=== PATIENT | male | born 1945 | race Caucasian/White ===

== ENCOUNTER 2016-05-30 15:31 | Inpatient (IN) | payer MEDICARE ==
[2016-05-30] MEDS ORDERED: DUONEB 0.5-3 MG/3 ml Neb IH PRN (16:24)
[2016-05-30] MEDS: DUONEB 0.5-3 MG/3 ml Neb IH SCH ×2 (16:26→20:26)
[2016-05-30] MEDS ORDERED: Zofran 4 MG/2 ML VIAL IV PRN (17:06)
[2016-05-30] MEDS ORDERED: Sodium Chloride 0.9% 10 ML FLUSH Syringe IV PRN (17:06)
[2016-05-30] MEDS ORDERED: Norco 10/325 MG Tablet PO PRN (17:20)
[2016-05-30] MEDS ORDERED: Nitrostat 0.4 MG Tablet SL PRN (17:20)
[2016-05-30] MEDS ORDERED: COMBIVENT RESPIMAT COMMON CANISTER IH PRN (17:20)
[2016-05-30] MEDS ORDERED: Compazine 5 MG PO PRN (17:20)
--- NOTE | 2016-05-30 17:23 | XRAY ---
Indication: CHF. Comparison: No Portable chest demonstrates COPD and CIPD. There is right base infiltrate/atelectasis and minimal left base fibrosis/scarring. No consolidation or large effusion. Heart is not enlarged. Left-sided AICD and right-sided Port-A-Cath. Bony thorax intact with mild osteopenia. Impression: Right base infiltrate/atelectasis. Correlate clinically. COPD and CIPD.
[2016-05-30] MEDS ORDERED: FLUTICASONE FUROATE 100 MCG IH SCH (17:30)
[2016-05-30 17:33] LABS: Mean Cell Volume 95.1 fl (78-100); Mean Platelet Volume 9.7 fl (6-9.5); Platelet Count 122 K/mm3 (150-450); Red Blood Count 4.06 M/mm3 (4.1-5.6); Red Cell Distribution Width 19.3 % (11.5-14.0); White Blood Count 6.7 K/mm3 (4.0-10.5)
[2016-05-30] MEDS ORDERED: MEDICATION INTERVENTION MC PRN (17:33)
[2016-05-30 18:23] LABS: ALBUMIN 3.2 g/dL (3.4-5.0); ALKALINE PHOSPHATASE 133 U/L (46-116); BILIRUBIN,TOTAL 0.6 mg/dL (0.2-1.0); BLOOD UREA NITROGEN 16 mg/dL (9-20); CHLORIDE 102 mEq/L (98-107); Carbon Dioxide 26.1 mEq/L (21-32); Glucose 91 MG/DL (70-110); Potassium 3.9 mEq/L (3.5-5.1); SGOT/AST 11 U/L (15-37); SGPT/ALT 9 U/L (12-78); SODIUM 139 mEq/L (136-145); Total Protein 7.5 gm/dL (6.4-8.2)
[2016-05-30] MEDS ORDERED: ENOXAPARIN SODIUM SQ ONE ×2 (18:41→18:46)
[2016-05-30] MEDS: ENOXAPARIN SODIUM SQ SCH (18:42)
[2016-05-30] MEDS: Lasix 40 MG/4 ML IV SCH ×2 (18:48→22:48)
[2016-05-30] MEDS: POTASSIUM CHL 40 MEQ/30 ML ORAL SOLUTION PO SCH (18:49)
[2016-05-30] MEDS: Pepcid 20 MG PO SCH (18:49)
[2016-05-30] MEDS: MS CONTIN 30 MG PO SCH (18:49)
[2016-05-30] MEDS: Duragesic 25MCG Patch TOP SCH (18:58)
[2016-05-30 19:39] LABS: Total Cells Counted 100
[2016-05-30 19:40] LABS: Platelet Estimate NORMAL (NORMAL)
[2016-05-30] MEDS: LACTULOSE 20 GM/30ML UD CUP PO SCH (22:49)
[2016-05-30] MEDS: MS CONTIN 60 MG PO SCH (22:49)
[2016-05-30] MEDS: COREG 12.5 MG PO SCH (22:49)
[2016-05-31] MEDS: Lasix 40 MG/4 ML IV SCH ×2 (05:53→14:09)
[2016-05-31] MEDS: DUONEB 0.5-3 MG/3 ml Neb IH SCH ×4 (05:56→17:59)
[2016-05-31] MEDS: MS CONTIN 30 MG PO SCH ×3 (07:44→16:42)
[2016-05-31] MEDS: ZOLOFT 50 MG TABLET PO SCH (08:40)
[2016-05-31] MEDS: POTASSIUM CHL 40 MEQ/30 ML ORAL SOLUTION PO SCH (08:40)
[2016-05-31] MEDS: LACTULOSE 20 GM/30ML UD CUP PO SCH ×2 (08:42→23:59)
[2016-05-31] MEDS: Pepcid 20 MG PO SCH (08:44)
[2016-05-31] MEDS: NORVASC 5 MG PO SCH (08:44)
[2016-05-31] MEDS: Protonix 40MG Tablet PO SCH (08:44)
[2016-05-31] MEDS: COREG 12.5 MG PO SCH (08:44)
[2016-05-31] MEDS: Sodium Chloride 0.9% 10 ML FLUSH Syringe IV SCH ×3 (08:47→14:09)
--- NOTE | 2016-05-31 09:14 | PCM.NOTE ---
Date and Time: 05/31/16908 Subjective Assessment: States last night his breathing "broke loose" and he feels much better, asking to go home. He's on 2L NC at home, but is on 5 L here. Objective Exam General Appearance: no apparent distress, thin Neurologic Exam: alert, cooperative Skin Exam: normal color, warm, dry Respiratory Exam: diminished breath sounds, wheezing (faint scattered) Cardiovascular Exam: regular rate/rhythm, normal heart sounds Gastrointestinal/Abdomen Exam: soft, normal bowel sounds, No tenderness Extremity Exam: swelling (1+ LE edema bilat) OBJECTIVE DATA Vital Signs: Vital Signs - 24 hr Temp Pulse Resp BP BP Pulse Ox 05/31/16 07:11 98 F 61 20 119/56 94 L 05/31/16 05:56 63 23 82 L 05/31/16 03:00 98.5 F 62 17 146/65 118/60 89 L 05/30/16 23:00 97.9 F 67 18 146/65 103/55 91 L 05/30/16 20:26 62 23 94 L 05/30/16 19:52 97.5 F 67 19 146/65 107/56 92 L 05/30/16 16:45 97.5 F 54 L 20 146/65 87 L 05/30/16 16:24 53 L 24 87 L 05/30/16 15:52 97.5 F 54 L 20 146/65 97 Oxygen-Last 24 hours O2 Percentage 4 Liters = 36% O2 Percentage 6 Liters = 44% O2 Percentage 6 Liters = 44% O2 Percentage 6 Liters = 44% O2 Percentage 4 Liters = 36% Pain Assessment - Last Documented Pain Intensity 0 Pain Scale Used 0-10 Pain Scale Intake and Output: Intake & Output 05/28/16 05/29/16 05/30/16 05/31/16 11:59 11:59 11:59 11:59 Intake Total 2220 Output Total 2475 Balance -255 Weight 60.146 kg Lab Results: Lab Results-Last 24 Hours 05/30/16 05/30/16 05/30/16 Range/Units 17:05 17:05 17:05 WBC 6.7 (4.0-10.5) K/mm3 RBC 4.06 L (4.1-5.6) M/mm3 Hgb 12.6 (12.5-18.0) gm/dl Hct 38.6 L (42-50) % MCV 95.1 (78-100) fl MCH 31.0 (26-32) pg MCHC 32.6 (32-36) g/dl RDW 19.3 H (11.5-14.0) % Plt Count 122 L (150-450) K/mm3 MPV 9.7 H (6-9.5) fl Segmented Neutrophils 85 H (36.-66.) % Lymphocytes (Manual) 8 L (24-44) % Monocytes (Manual) 7 (0.0-12.0) % Differential Comment NORMAL Platelet Estimate NORMAL (NORMAL) D-Dimer 0.936 H* (0.00-0.49) mg/L Sodium 139 (136-145) mEq/L Potassium 3.9 (3.5-5.1) mEq/L Chloride 102 (98-107) mEq/L Carbon Dioxide 26.1 (21-32) mEq/L Anion Gap 15.0 (5-15) MEQ/L BUN 16 (9-20) mg/dL Creatinine 0.88 (0.55-1.30) mg/dl Estimated GFR > 60 ML/MIN Glucose 91 (70-110) MG/DL Calcium 8.7 (8.5-10.1) mg/dL Total Bilirubin 0.6 (0.2-1.0) mg/dL AST 11 L (15-37) U/L ALT 9 L (12-78) U/L Alkaline Phosphatase 133 H (46-116) U/L NT-Pro-B Natriuret Pep 1666 H (0-125) pg/ml Serum Total Protein 7.5 (6.4-8.2) gm/dL Albumin 3.2 L (3.4-5.0) g/dL Radiology Exams: Radiology Procedures Category Date Time Status CHEST 1 VIEW (PORTABLE) Routine Exams 05/30/16 16:07 Completed Multi-Disciplinary Progress Notes: Multi-Disciplinary Progress Notes 05/30/16 17:14 Case Management Note by Salina Chong DISCHARGE PLAN REVIEWED WITH PT ET HIS . THEY AT THIS TIME ARE THINKING THAT THEY MAY NEED A WALKER ON DISCHARGE. Initialized on 05/30/16 17:14 - END OF NOTE Assessment/Plan (1) CHF exacerbation Current Visit: Yes Status: Acute Assessment & Plan: He is feeling better, however I advised one more day of IV meds and weaning off the O2 would be beneficial and he agrees to stay. Continue IV lasix. Code(s): I50.9 - HEART FAILURE, UNSPECIFIED (2) SOB (shortness of breath) Current Visit: Yes Status: Acute Assessment & Plan: Much improved. Pt with elevated D-dimer; however he does have esophageal cancer apparently and clinically SOB is much better. Will hold on CT chest for now. Code(s): R06.02 - SHORTNESS OF BREATH
[2016-05-31] MEDS: Flonase NASAL NS SCH (09:31)
[2016-05-31] MEDS ORDERED: NON-FORMULARY ITEM (Febuxostat [Uloric] 40 MG) PO SCH (10:00)
[2016-05-31] MEDS ORDERED: NON-FORMULARY ITEM (Omeprazole 20 Mg [Prilosec 20 Mg] 20 MG) PO SCH (10:00)
[2016-05-31] MEDS ORDERED: Flonase NASAL NS SCH (10:00)
[2016-05-31] MEDS: TYLENOL 325 MG PO PRN (15:39)
[2016-05-31] MEDS: ENOXAPARIN SODIUM SQ SCH (18:44)
[2016-06-01] MEDS: Sodium Chloride 0.9% 10 ML FLUSH Syringe IV SCH ×4 (00:08→22:05)
[2016-06-01 04:15] LABS: COMPLETE URINE MICROSCOPIC? YES; Collection Type CLEAN CATCH; Epithelial Cells RARE /HPF (FEW); Ph 7.5 (5-6)
[2016-06-01] MEDS: TYLENOL 325 MG PO PRN (05:00)
[2016-06-01] MEDS: Nicoderm CQ 21 MG TOP SCH (05:59)
[2016-06-01] MEDS: Lasix 40 MG/4 ML IV SCH ×4 (05:59→22:05)
[2016-06-01] MEDS: MS CONTIN 30 MG PO SCH ×3 (07:11→17:21)
[2016-06-01] MEDS: DUONEB 0.5-3 MG/3 ml Neb IH SCH ×4 (07:20→17:46)
[2016-06-01] MEDS: NORVASC 5 MG PO SCH (08:32)
[2016-06-01] MEDS: COREG 12.5 MG PO SCH ×3 (08:32→22:05)
[2016-06-01] MEDS: LACTULOSE 20 GM/30ML UD CUP PO SCH ×2 (08:35→22:04)
[2016-06-01] MEDS: POTASSIUM CHL 40 MEQ/30 ML ORAL SOLUTION PO SCH (08:36)
[2016-06-01] MEDS: Pepcid 20 MG PO SCH (08:36)
[2016-06-01] MEDS: ZOLOFT 50 MG TABLET PO SCH (08:36)
[2016-06-01] MEDS: Protonix 40MG Tablet PO SCH (08:37)
--- NOTE | 2016-06-01 09:35 | PCM.NOTE ---
Date and Time: 06/01/16 09 Subjective Assessment: patient had fever this morning, he has some sputum production with his cough now. his swelling had dramatically improved. overall he is feeling better. Objective Exam General Appearance: no apparent distress, alert Respiratory Exam: crackles/rales Cardiovascular Exam: regular rate/rhythm, normal heart sounds Gastrointestinal/Abdomen Exam: soft, No tenderness, No mass Extremity Exam: normal inspection, normal range of motion OBJECTIVE DATA Vital Signs: Vital Signs - 24 hr Temp Pulse Resp BP BP Pulse Ox 06/01/16 07:28 80 16 89 L 06/01/16 07:19 97.9 F 89 20 96/54 90 L 06/01/16 05:00 101 F 06/01/16 03:00 101 F 88 21 86/48 90 L 05/31/16 23:00 99.6 F 95 H 24 125/76 89 L 05/31/16 19:00 99.7 F 88 26 H 139/63 93 L 05/31/16 18:00 88 18 95 05/31/16 15:18 55 L 16 90 L 05/31/16 14:53 97.6 F 78 18 146/65 116/57 90 L 05/31/16 11:19 82 12 86 L 05/31/16 11:17 97.8 F 80 20 122/64 90 L Oxygen-Last 24 hours O2 Percentage 60% O2 Percentage 5 Liters = 40% O2 Percentage 5 Liters = 40% O2 Percentage 3 Liters = 32% Pain Assessment - Last Documented Pain Intensity 0 Pain Scale Used 0-10 Pain Scale Intake and Output: Intake & Output 05/29/16 05/30/16 05/31/16 06/01/16 11:59 11:59 11:59 11:59 Intake Total 2220 800 Output Total 9185 1525 Balance -655 -725 Weight 60.146 kg 59.466 kg Lab Results: Lab Results-Last 24 Hours 06/01/16 Range/Units 03:00 Ur Collection Type CLEAN CATCH Urine Color YELLOW (YELLOW) Urine Appearance CLEAR (CLEAR) Urine pH 7.5 (5-6) Ur Specific [place] 1.015 (1.005-1.025) Urine Protein NEGATIVE (Negative) Urine Glucose (UA) NEGATIVE (NEGATIVE) mg/dL Urine Ketones NEGATIVE (NEGATIVE) Urine Nitrite NEGATIVE (NEGATIVE) Urine Bilirubin NEGATIVE (NEGATIVE) Urine Urobilinogen 1 (0-1) mg/dL Urine WBC (Auto) NEGATIVE (NEGATIVE) Urine RBC (Auto) TRACE NON-HEM (0-5) Yo/ul Urine Microscopic RBC 0-2 (0-2) /HPF Ur Epithelial Cells RARE (FEW) /HPF Specimen Received 06/01/16:0300 Radiology Exams: Radiology Procedures Category Date Time Status CHEST 1 VIEW (PORTABLE) Routine Exams 05/30/16 16:07 Completed CHEST 1 VIEW (PORTABLE) Routine Exams 06/02/16 07:00 Ordered Multi-Disciplinary Progress Notes: Multi-Disciplinary Progress Notes 06/01/16 05:09 Respiratory Note by Carlos Alberto Waddell CALLED TO PT RM AGAIN REGARDING LOW SATS. NURSING STATES HIS SATS ARE 88. I INCREASED PT O2 FROM 10LPM TO 15LPM VIA OXYMASK AND PT SATS CAME UP TO 92%. PT IS SLEEPING AT THE MOMENT. Initialized on 06/01/16 05:09 - END OF NOTE 06/01/16 02:08 Respiratory Note by Carlos Alberto Waddell CALLED TO PT RM FOR SATS OF 78 ON 6LPM O2. PLACED PT ON 15LPM OXYMASK AND SATS WENT UP TO 99%. TITRATED PT DOWN TO 10LPM WHERE SATS HOVERED BETWEEN 95% AND 97 %. LEFT PT SLEEPING ON 10LPM OXYMASK. NURSING IS AWARE OF CHANGE. Initialized on 06/01/16 02:08 - END OF NOTE Assessment/Plan (1) Pneumonia Current Visit: Yes Status: Acute Assessment & Plan: patient started on levaquin due to infiltrate vs atelectasis on chest xray and now with fever this morning Code(s): J18.9 - PNEUMONIA, UNSPECIFIED ORGANISM (2) CHF exacerbation Current Visit: Yes Status: Acute Assessment & Plan: improved with diuresis Code(s): I50.9 - HEART FAILURE, UNSPECIFIED
[2016-06-01] MEDS: LEVOFLOXACIN 750MG/150ML D5W 150 ML IV SCH (13:12)
[2016-06-01] MEDS: Flonase NASAL NS SCH (13:33)
[2016-06-01] MEDS: ENOXAPARIN SODIUM SQ SCH (17:21)
[2016-06-01] MEDS: MS CONTIN 60 MG PO SCH ×2 (22:05)
[2016-06-02] MEDS: Nicoderm CQ 21 MG TOP SCH (05:24)
[2016-06-02] MEDS: Sodium Chloride 0.9% 10 ML FLUSH Syringe IV SCH (05:25)
[2016-06-02] MEDS: Lasix 40 MG/4 ML IV SCH (05:26)
[2016-06-02] MEDS ORDERED: Sodium Chloride 0.9% 500 ML 500 ML IV ONE (06:00)
[2016-06-02 06:01] LABS: Mean Cell Volume 96.7 fl (78-100); Mean Corpuscular Hemoglobin 31.1 pg (26-32); Mean Platelet Volume 10.6 fl (6-9.5); Platelet Count 118 K/mm3 (150-450); Red Blood Count 3.34 M/mm3 (4.1-5.6); Red Cell Distribution Width 18.8 % (11.5-14.0); White Blood Count 9.4 K/mm3 (4.0-10.5)
[2016-06-02 06:21] LABS: ALBUMIN 2.3 g/dL (3.4-5.0); ALKALINE PHOSPHATASE 103 U/L (46-116); ANION GAP 14.2 MEQ/L (5-15); BILIRUBIN,TOTAL 0.7 mg/dL (0.2-1.0); BLOOD UREA NITROGEN 26 mg/dL (9-20); CHLORIDE 101 mEq/L (98-107); Carbon Dioxide 27.3 mEq/L (21-32); Glucose 109 MG/DL (70-110); MAGNESIUM 1.5 mg/dL (1.8-2.4); Potassium 3.9 mEq/L (3.5-5.1); SGOT/AST 6 U/L (15-37); SODIUM 139 mEq/L (136-145); Total Protein 6.4 gm/dL (6.4-8.2)
[2016-06-02] MEDS: DUONEB 0.5-3 MG/3 ml Neb IH SCH ×2 (06:43→11:05)
[2016-06-02 06:48] LABS: SGPT/ALT < 6 U/L (12-78)
[2016-06-02 07:22] LABS: ANISOCYTOSIS 1+; Platelet Estimate NORMAL (NORMAL); Total Cells Counted 100
--- NOTE | 2016-06-02 08:23 | PCM.DS ---
Discharge Summary Date of Admission: 05/30/16 15:35 Admitting Physician: MADELEINE NICHOLSON Primary Care Provider: MADELEINE NICHOLSON Allergies Allergies adhesive tape Allergy (Verified 04/15/15 08:23) Iodinated Contrast Media - Oral and [Iodinated Contrast Media - IV Dye] Allergy (Verified 04/15/15 08:23) Penicillins Allergy (Verified 05/28/15 06:39) Hives tetanus and diphtheria toxoids [tetanus & diphtheria toxoids] Allergy (Verified 04/15/15 08:23) Hospital Summary - Hospital Course Hospital Course: patient doing much better at this time, was admitted with chf exacerbation and found to have mild infiltrate on chest xray. he has improved dramatically and had excellent diuresis - Vitals & Intake/Output Vital Signs: Vital Signs Temperature 98 F 06/02/16 07:35 Pulse Rate 61 06/02/16 07:35 Respiratory Rate 20 06/02/16 07:35 Blood Pressure 108/52 06/02/16 07:35 O2 Sat by Pulse Oximetry 98 06/02/16 07:35 Oxygen-Last Documented O2 Percentage 100% Intake & Output: Intake & Output 05/30/16 05/31/16 06/01/16 06/02/16 11:59 11:59 11:59 11:59 Intake Total 2220 800 1000 Output Total 2875 1825 2000 Balance -305 1025 -1000 Weight 60.146 kg 59.466 kg 59.602 kg - Lab Result Diagrams: 06/02/16 05:05 06/02/16 05:05 Lab Results-Last 24 Hrs: Lab Results-Last 24 Hours 06/01/16 06/02/16 06/02/16 Range/Units 03:00 05:05 05:05 WBC 9.4 (4.0-10.5) K/mm3 RBC 3.34 L (4.1-5.6) M/mm3 Hgb 10.4 L (12.5-18.0) gm/dl Hct 32.3 L (42-50) % MCV 96.7 (78-100) fl MCH 31.1 (26-32) pg MCHC 32.2 (32-36) g/dl RDW 18.8 H (11.5-14.0) % Plt Count 118 L (150-450) K/mm3 MPV 10.6 H (6-9.5) fl Segmented Neutrophils 87 H (36.-66.) % Lymphocytes (Manual) 9 L (24-44) % Monocytes (Manual) 4 (0.0-12.0) % Differential Comment ABNORMAL Platelet Estimate NORMAL (NORMAL) Anisocytosis 1+ Sodium 139 (136-145) mEq/L Potassium 3.9 (3.5-5.1) mEq/L Chloride 101 (98-107) mEq/L Carbon Dioxide 27.3 (21-32) mEq/L Anion Gap 14.2 (5-15) MEQ/L BUN 26 H (9-20) mg/dL Creatinine 1.36 H (0.55-1.30) mg/dl Estimated GFR 55 ML/MIN Glucose 109 (70-110) MG/DL Calcium 8.3 L (8.5-10.1) mg/dL Magnesium 1.5 L (1.8-2.4) mg/dL Total Bilirubin 0.7 (0.2-1.0) mg/dL AST 6 L (15-37) U/L ALT < 6 L (12-78) U/L Alkaline Phosphatase 103 (46-116) U/L Serum Total Protein 6.4 (6.4-8.2) gm/dL Albumin 2.3 L (3.4-5.0) g/dL Ur Collection Type CLEAN CATCH Urine Color YELLOW (YELLOW) Urine Appearance CLEAR (CLEAR) Urine pH 7.5 (5-6) Ur Specific [place] 1.015 (1.005-1.025) Urine Protein NEGATIVE (Negative) Urine Glucose (UA) NEGATIVE (NEGATIVE) mg/dL Urine Ketones NEGATIVE (NEGATIVE) Urine Nitrite NEGATIVE (NEGATIVE) Urine Bilirubin NEGATIVE (NEGATIVE) Urine Urobilinogen 1 (0-1) mg/dL Urine WBC (Auto) NEGATIVE (NEGATIVE) Urine RBC (Auto) TRACE NON-HEM (0-5) Yo/ul Urine Microscopic RBC 0-2 (0-2) /HPF Ur Epithelial Cells RARE (FEW) /HPF Specimen Received 06/01/16:0300 Micro Results-Entire Visit: Microbiology 05/30/16 17:15 Blood Culture - Preliminary Blood NO GROWTH TO DATE 05/30/16 17:05 Blood Culture - Preliminary Blood NO GROWTH TO DATE - Radiology Exams Ordered Rad Exams-Entire Visit: Radiology Procedures Category Date Time Status CHEST 1 VIEW (PORTABLE) Routine Exams 06/02/16 07:00 Taken - Procedures and Test Procedures and Tests throughout Hospitalization: Therapy Orders & Screens 05/30/16 16:24 Respiratory Nebulizer 07,11,15,19 Comment: Diagnosis: CHF exacurbation, esophagal cancer 05/30/16 16:25 Oxygen NASAL CANNULA 6 lpm Comment: Diagnosis: CHF exacurbation, esophagal cancer Respiratory Nebulizer Comment: Diagnosis: CHF exacurbation, esophagal cancer Discharge Exam General Appearance: no apparent distress, alert Respiratory Exam: prolonged expirations Cardiovascular Exam: regular rate/rhythm, normal heart sounds Gastrointestinal/Abdomen Exam: soft, No tenderness, No mass Extremity Exam: normal inspection, normal range of motion, pedal edema (trace) Final Diagnosis/Problem List - Final Discharge Diagnosis/Problem (1) Pneumonia Current Visit: Yes Status: Acute (2) CHF exacerbation Current Visit: Yes Status: Acute - Discharge Disposition: Home, Self-Care Condition: Stable Prescriptions: New Levofloxacin [Levaquin] 500 mg PO DAILY #7 tablet Continue Ipratropium/Albuterol Sulfate [Combivent Respimat Common Canister] 1 puff IH Q6HPRN PRN PRN Reason: breathing Carvedilol 12.5 mg [Coreg 12.5 mg] 12.5 mg PO BID Famotidine 20 mg [Pepcid 20 MG] 20 mg PO DAILY Furosemide 40 mg [Lasix 40 MG] 40 mg PO DAILY Fentanyl 25Mcg Patch [Duragesic 25MCG Patch] 25 mcg TD UD Fluocinolone/Shower Cap [Fluocinolone 0.01% Scalp Oil] 118.28 ml TP Q12H PRN PRN PRN Reason: skin Fluticasone Furoate [Arnuity Ellipta] 100 mcg IH UD Hydrocodone/APAP 10/325 mg [[place] 10/325 MG Tablet] 1 tab PO Q4H PRN PRN PRN Reason: Pain Ipratropium [place] 0.5 mg [Atrovent 0.5MG NEBULE] 0.5 mg IH UD Morphine Sulfate [Morphine Sulfate ER] 30 mg PO TID Sertraline HCl 50 mg [Zoloft 50 mg Tablet] 100 mg PO DAILY Prochlorperazine Maleate 5 mg* [Compazine 5 MG] 10 mg PO Q6HPRN PRN PRN Reason: Nausea Potassium Chl 40 Meq Oral Krissy* [Potassium Chl 40 Meq/30 ml Oral Solution] 15 meq PO DAILY Omeprazole 20 MG [Prilosec 20 mg] 20 mg PO DAILY Nitroglycerin 0.4 mg Tablet [Nitrostat 0.4 MG Tablet] 0.4 mg SL [id number] PRN PRN Reason: Chest Pain Morphine Sulfate [Morphine Sulfate ER] 60 mg PO QHS Febuxostat [Uloric] 40 mg PO DAILY Discontinued Amlodipine Besylate 5 mg [Norvasc 5 mg] 5 mg PO DAILY Follow up with: MADELEINE NICHOLSON MD [Primary Care Provider] - 1 Week Forms: Patient Portal Information
[2016-06-02] MEDS: LEVOFLOXACIN 750MG/150ML D5W 150 ML IV SCH (08:27)
[2016-06-02] MEDS: POTASSIUM CHL 40 MEQ/30 ML ORAL SOLUTION PO SCH (08:27)
[2016-06-02] MEDS: LACTULOSE 20 GM/30ML UD CUP PO SCH (08:30)
[2016-06-02] MEDS: Protonix 40MG Tablet PO SCH (08:31)
[2016-06-02] MEDS: Pepcid 20 MG PO SCH (08:31)
[2016-06-02] MEDS: ZOLOFT 50 MG TABLET PO SCH (08:31)
[2016-06-02] MEDS: MS CONTIN 30 MG PO SCH ×2 (08:31→12:49)
[2016-06-02] MEDS: Duragesic 25MCG Patch TOP SCH (08:32)
[2016-06-02] MEDS: Flonase NASAL NS SCH (08:32)
[2016-06-02] MEDS: NORVASC 5 MG PO SCH (08:41)
[2016-06-02] MEDS: COREG 12.5 MG PO SCH (08:41)
--- NOTE | 2016-06-02 08:55 | XRAY ---
Indication: Hypoxia and CHF. Comparison: May 30, 2016 Portable chest demonstrates new subtle left base infiltrate/atelectasis. Remaining chest unchanged again with right base infiltrate/atelectasis, COPD/CIPD, pacemaker, and Port-A-Cath. Heart is not enlarged.
[2016-06-02 11:10] VITALS: PULSE 75
[2016-06-02 11:46] VITALS: BP 90/50; O2SAT 95
== END 2016-06-02 14:18 | disposition home or self-care (01) | DRG 193 ==
LOC: OBSVTOIN 15:35 → MED SURG 15:35
PROVIDERS: ADMIT Family Medicine; ATTEND Family Medicine
DX: J18.9 Pneumonia, unspecified organism (principal); I50.23 Acute on chronic systolic (congestive) heart failure; C15.9 Malignant neoplasm of esophagus, unspecified; I42.9 Cardiomyopathy, unspecified; J44.9 Chronic obstructive pulmonary disease, unspecified; K21.9 Gastro-esophageal reflux disease without esophagitis; I73.9 Peripheral vascular disease, unspecified; F32.9 Major depressive disorder, single episode, unspecified; Z79.899 Other long term (current) drug therapy
CPT/HCPCS: 36415; 71010; 80053; 81000; 83735; 83880; 85025; 85379; 87040; 94640; 94760; J1642; J1650; J1940; J1956

== ENCOUNTER 2016-10-24 14:21 | Emergency (ER) | payer MEDICARE ==
[2016-10-24] MEDS ORDERED: Sodium Chloride 0.9% 1000 ML 1,000 ML IV SCH (14:30)
[2016-10-24] MEDS ORDERED: DUONEB 0.5-3 MG/3 ml Neb IH ONE ×4 (14:34→16:25)
[2016-10-24 14:35] LABS: A-aADO2 51; ARTERIAL BLD GAS O2 SATURATION 88.3 % (95-100); ARTERIAL BLOOD GAS BASE EXCESS 2.8 (-2.0-2.0); ARTERIAL BLOOD GAS FIO2 21 %; ARTERIAL BLOOD GAS pH 7.44 (7.35-7.45); Lactic Acid 1.9 (0.4-2.0)
[2016-10-24 14:36] LABS: ALLEN TEST OK? YES; ARTERIAL BLOOD GAS PO2 49 mmHg (75-100)
--- NOTE | 2016-10-24 14:44 | ERPHSYRPT ---
- History of Present Illness Time Seen by Provider: 10/24/16 14:30 Source: patient, family, EMS Exam Limitations: clinical condition Physician History: PATIENT WITH HISTORY OF ESOPHAGEAL CARCINOMA, HYPERTERSION, COPD, CONGESTIVE HEART FAILURE, FAMILY STATES PATIENT HAS BEEN LETHARGIC, LABORED BREATHING, COMPLAINS OF GENERALIZED CHEST AND BACK PAIN. STATES PATIENT HAS NONPRODUCTIVE COUGH FOR 3-4 DAYS. DENIES FEVER. Timing/Duration: today Activities at Onset: none Severity of Dyspnea-Max: moderate Severity of Dyspnea-Current: moderate Possible Cause: occasional episodes Modifying Factors: Improves With: activity Associated Symptoms: weakness, painful breathing International travel in last 2 weeks: No Allergies/Adverse Reactions: adhesive tape Allergy (Verified 10/24/16 16:40) Iodinated Contrast- Oral and IV Dye [Iodinated Contrast Media - IV Dye] Allergy (Verified 10/24/16 16:40) Penicillins Allergy (Verified 10/24/16 16:40) Hives tetanus and diphtheria toxoids [tetanus & diphtheria toxoids] Allergy (Verified 10/24/16 16:40) Home Medications: Carvedilol 12.5 mg [Coreg 12.5 mg] 12.5 mg PO BID 05/30/16 [History] Famotidine 20 mg [Pepcid 20 MG] 20 mg PO DAILY 05/30/16 [History] Febuxostat [Uloric] 40 mg PO DAILY 05/30/16 [History] Fentanyl 25Mcg Patch [Duragesic 25MCG Patch] 25 mcg TD UD 05/30/16 [ History] Fluocinolone/Shower Cap [Fluocinolone 0.01% Scalp Oil] 118.28 ml TP Q12H PRN PRN 05/30/16 [History] Fluticasone Furoate [Arnuity Ellipta] 100 mcg IH UD 05/30/16 [History] Furosemide 40 mg [Lasix 40 MG] 40 mg PO DAILY 05/30/16 [History] Hydrocodone/APAP 10/325 mg [[place] 10/325 MG Tablet] 1 tab PO Q4H PRN PRN 05/30/16 [History] Ipratropium Golden 0.5 mg [Atrovent 0.5MG NEBULE] 0.5 mg IH UD 05/30/16 [ History] Ipratropium/Albuterol Sulfate [Combivent Respimat Common Canister] 1 puff IH Q6HPRN PRN 05/30/16 [History] Morphine Sulfate [Morphine Sulfate ER] 30 mg PO TID 05/30/16 [History] Morphine Sulfate [Morphine Sulfate ER] 60 mg PO QHS 05/30/16 [History] Nitroglycerin 0.4 mg Tablet [Nitrostat 0.4 MG Tablet] 0.4 mg SL [id number] PRN 05/30/16 [History] Omeprazole 20 MG [Prilosec 20 mg] 20 mg PO DAILY 05/30/16 [History] Potassium Chl 40 Meq Oral Krissy* [Potassium Chl 40 Meq/30 ml Oral Solution] 15 meq PO DAILY 05/30/16 [History] Prochlorperazine Maleate 5 mg* [Compazine 5 MG] 10 mg PO Q6HPRN PRN 05/30/16 [History] Sertraline HCl 50 mg [Zoloft 50 mg Tablet] 100 mg PO DAILY 05/30/16 [History ] - Review of Systems Constitutional: Lethargy, Weakness, No Fever, No Chills Eyes: No Symptoms Ears, Nose, & Throat: No Symptoms Respiratory: Other (HYPOCAPNEA, DEMINISHED BREATH SOUNDS AT BASES), No Cough, No Dyspnea Cardiac: No Chest Pain, No Edema, No Syncope Abdominal/Gastrointestinal: No Symptoms, No Abdominal Pain, No Nausea, No Vomiting, No Diarrhea Genitourinary Symptoms: No Symptoms, No Dysuria Musculoskeletal: No Symptoms, No Back Pain, No Neck Pain Skin: No Rash Neurological: No Dizziness, No Focal Weakness, No Sensory Changes Psychological: No Symptoms Endocrine: No Symptoms All Other Systems: Reviewed and Negative - Past Medical History Pertinent Past Medical History: Yes Neurological History: No Pertinent History ENT History: Cataracts Cardiac History: Coronary Artery Disease, High Cholesterol, Hypertension, Myocardial Infarction ([place]), Peripheral Vascular Disease, Other Respiratory History: COPD Endocrine Medical History: No Pertinent History Musculoskeletal History: Arthritis, Other GI Medical History: GERD, Other History: Renal Disease Psycho-Social History: Depression Male Reproductive Disorders: No Pertinent History Other Medical History: crushed leg right leg. Chronic sinus problems. esophageal cancer - Past Surgical History Past Surgical History: Yes Neuro Surgical History: No Pertinent History Cardiac: Cardiac Catheterization, Cardiac Stent, Internal Defibrillator, Pacemaker, Vascular Surgery Respiratory: No Pertinent History Gastrointestinal: No Pertinent History Genitourinary: No Pertinent History Musculoskeletal: Orthopedic Surgery, Other Male Surgical History: No Pertinent History Other Surgical History: Left leg varicose veins. Pins placed in right leg from hip to knee. - Social History Smoking Status: Former smoker How long have you smoked: 4 YEARS Exposure to second hand smoke: No Drug Use: none - Nursing Vital Signs Nursing Vital Signs: Initial Vital Signs Temperature 97.7 F Temperature Source Axillary Pulse Rate 68 Respiratory Rate 22 Blood Pressure [] 107/59 Pain Intensity 0 - Physical Exam General Appearance: lethargy, other (OPENS EYES TO VERBAL COMMAND) Eye Exam: PERRL/EOMI Ears, Nose, Throat Exam: hearing grossly normal Neck Exam: normal inspection Respiratory Exam: diminished breath sounds Cardiovascular/Chest Exam: normal heart sounds, regular rate/rhythm Abdominal/Gastrointestinal Exam: soft, normal bowel sounds Extremity Exam: non-tender, normal range of motion Peripheral Pulses Exam: carotid (R): 2+, carotid (L): 2+, femoral (R): 2+, femoral (L): 2+, dorsalis-pedis (R): 2+, dorsalis-pedis (L): 2+ Neurologic Exam: cooperative Skin Exam: normal color Lymphatic Exam: adenopathy SpO2 Interpretation: hypoxic SpO2: 75 Oxygen Delivery: Room Air - Course EKG Interpreted by Me: RATE, Sinus Rhythm, Sinus Tach, NORMAL AXIS, Left [place] Deviation, Non-specific ST Changes - Radiology Exams Chest X-ray Interpretation: Reviewed by me (RIGHT MIDDLE AND LOWER LOBE INFILTRATES, LEFT LOWER LOBE INFILTRATE WITH BIBASILAR PLEURAL EFFUSIONS AND INTERSTITIAL EDEMA) Ordered Tests: Active Orders 24 hr Category Date Time Status Vocational Evaluator STAT Care 10/24/16 14:30 Active EKG-ER Only STAT Care 10/24/16 14:30 Active Taylor [Catheter-[place] Taylor] STAT Care 10/24/16 16:01 Active Oxygen-ED Only VENTI-MASK 50% Care 10/24/16 14:30 Active CHEST 1 VIEW (PORTABLE) Stat Exams 10/24/16 14:31 Completed ABG [ARTERIAL BLOOD GASES] Stat Lab 10/24/16 14:30 Completed BLOOD CULTURE Stat Lab 10/24/16 14:40 Received CBC W DIFF Stat Lab 10/24/16 14:42 Completed CMP Stat Lab 10/24/16 14:42 Completed D-DIMER QUANTITATION Stat Lab 10/24/16 14:42 Completed Lactic Acid Stat Lab 10/24/16 14:30 Completed MAG [MAGNESIUM] Stat Lab 10/24/16 14:42 Completed Manual Differential NC Stat Lab 10/24/16 14:42 Completed NT PRO BNP Stat Lab 10/24/16 14:42 Completed PROTIME WITH INR Stat Lab 10/24/16 14:42 Completed TROPONIN Q3H Lab 10/24/16 14:45 Completed TROPONIN Q3H Lab 10/24/16 17:45 Ordered TROPONIN Q3H Lab 10/24/16 20:45 Ordered TROPONIN Q3H Lab 10/24/16 23:45 Ordered TROPONIN Q3H Lab 10/25/16 02:45 Ordered UA Stat Lab 10/24/16 16:30 Received Respiratory Nebulizer STAT RT 10/24/16 14:35 Completed Respiratory Nebulizer STAT RT 10/24/16 16:15 Completed Medication Summary Generic Name Dose Route Start Last Admin Trade Name Freq PRN Reason Stop Dose Admin Sodium Chloride 1,000 mls @ 50 mls/hr 10/24/16 14:30 10/24/16 14:57 Sodium Chloride 0.9% 1000 Ml IV 11/23/16 14:29 50 mls/hr .Q20H AMRIT Administration Discontinued Medications Generic Name Dose Route Start Last Admin Trade Name Freq PRN Reason Stop Dose Admin Albuterol/Ipratropium 3 ml 10/24/16 14:35 10/24/16 14:35 Duoneb 0.5-3 Mg/3 Ml Neb IH 10/24/16 14:36 3 ml STAT ONE Administration Albuterol/Ipratropium Confirm 10/24/16 14:34 Duoneb 0.5-3 Mg/3 Ml Neb Administered 10/24/16 14:35 Dose 3 ml IH .STK-MED ONE Albuterol/Ipratropium 3 ml 10/24/16 16:15 10/24/16 16:25 Duoneb 0.5-3 Mg/3 Ml Neb IH 10/24/16 16:16 3 ml STAT ONE Administration Albuterol/Ipratropium Confirm 10/24/16 16:25 Duoneb 0.5-3 Mg/3 Ml Neb Administered 10/24/16 16:26 Dose 3 ml IH .STK-MED ONE Aspirin 324 mg 10/24/16 15:34 10/24/16 15:50 Baby Aspirin 81 Mg Chew PO 10/24/16 15:35 Not Given STAT ONE Furosemide 20 mg 10/24/16 15:43 10/24/16 15:49 Lasix 20 Mg/2 Ml IV 10/24/16 15:44 20 mg STAT STA Administration Furosemide Confirm 10/24/16 15:45 Lasix 40 Mg/4 Ml Administered 10/24/16 15:46 Dose 40 mg .ROUTE .STK-MED ONE Levofloxacin/Dextrose 500 mg in 100 mls @ 100 mls/hr 10/24/16 15:11 10/24/16 15:16 Levofloxacin 500mg/100ml D5w IV 10/24/16 16:10 100 mls/hr STAT STA Administration Levofloxacin/Dextrose Confirm 10/24/16 15:15 Levofloxacin 500mg/100ml D5w Administered 10/24/16 15:16 Dose 500 mg in 100 mls @ ud IV .STK-MED ONE Magnesium Sulfate/Dextrose 100 mls @ 200 mls/hr 10/24/16 15:26 10/24/16 15:37 Magnesium 1 Gm / 100 Ml D5w IV 10/24/16 15:55 200 mls/hr STAT ONE Administration Magnesium Sulfate/Dextrose Confirm 10/24/16 15:36 Magnesium 1 Gm / 100 Ml D5w Administered 10/24/16 15:37 Dose 100 mls @ ud IV .STK-MED ONE Lab/Rad Data: Laboratory Result Diagrams 10/24/16 14:42 10/24/16 14:42 Laboratory Results 10/24/16 10/24/16 10/24/16 Range/Units 16:30 14:45 14:42 WBC (4.0-10.5) K/mm3 RBC (4.1-5.6) M/mm3 Hgb (12.5-18.0) gm/dl Hct (42-50) % MCV (78-100) fl MCH (26-32) pg MCHC (32-36) g/dl RDW (11.5-14.0) % Plt Count (150-450) K/mm3 MPV (6-9.5) fl Segmented Neutrophils (36.-66.) % Band Neutrophils (0.0-2.0) % Lymphocytes (Manual) (24-44) % Monocytes (Manual) (0.0-12.0) % Differential Comment Toxic Granulation Platelet Estimate (NORMAL) INR (0.8-3.0) D-Dimer (0.00-500.00) ng/mL Puncture Site pCO2 (35-45) mmHg pO2 (75-100) mmHg Base Excess (-2.0-2.0) O2 Saturation (94-100) g/dF ABG pH (7.35-7.45) ABG HCO3 (22-28) ABG O2 Sat (Measured) (95-100) % Delio Test A-a Gradient a/A Ratio Hemoglobin Carboxyhemoglobin (0.0-6.9) % THgb Methemoglobin (1.4-1.5) % Potassium (3.5-5.1) Temperature C POC O2 Flow Rate % Sodium (136-145) mEq/L Chloride (98-107) mEq/L Carbon Dioxide (21-32) mEq/L Anion Gap (5-15) MEQ/L BUN (9-20) mg/dL Creatinine (0.55-1.30) mg/dl Estimated GFR ML/MIN Glucose (70-110) MG/DL Lactic Acid (0.4-2.0) Calcium (8.5-10.1) mg/dL Magnesium 1.5 L (1.8-2.4) mg/dL Total Bilirubin (0.2-1.0) mg/dL AST (15-37) U/L ALT (12-78) U/L Alkaline Phosphatase (46-116) U/L Troponin I 0.314 H* (0.000-0.056) ng/ml NT-Pro-B Natriuret Pep (0-125) pg/ml Serum Total Protein (6.4-8.2) gm/dL Albumin (3.4-5.0) g/dL Ur Collection Type Pending Urine Color Pending Urine Appearance Pending Urine pH Pending Ur Specific [place] Pending Urine Protein Pending Urine Ketones Pending Urine Blood Pending Urine Nitrite Pending Urine Bilirubin Pending Urine Urobilinogen Pending Ur Leukocyte Esterase Pending Urine Glucose Pending Specimen Received Pending 10/24/16 10/24/16 10/24/16 Range/Units 14:42 14:42 14:42 WBC 11.0 H (4.0-10.5) K/mm3 RBC 3.79 L (4.1-5.6) M/mm3 Hgb 11.7 L (12.5-18.0) gm/dl Hct 36.0 L (42-50) % MCV 95.0 (78-100) fl MCH 30.8 (26-32) pg MCHC 32.5 (32-36) g/dl RDW 15.4 H (11.5-14.0) % Plt Count 138 L (150-450) K/mm3 MPV 9.7 H (6-9.5) fl Segmented Neutrophils 77 H (36.-66.) % Band Neutrophils 21 H (0.0-2.0) % Lymphocytes (Manual) 1 L (24-44) % Monocytes (Manual) 1 (0.0-12.0) % Differential Comment ABNORMAL Toxic Granulation 1+ Platelet Estimate DECREASED (NORMAL) INR 1.32 (0.8-3.0) D-Dimer 713.49 H* (0.00-500.00) ng/mL Puncture Site pCO2 (35-45) mmHg pO2 (75-100) mmHg Base Excess (-2.0-2.0) O2 Saturation (94-100) g/dF ABG pH (7.35-7.45) ABG HCO3 (22-28) ABG O2 Sat (Measured) (95-100) % Delio Test A-a Gradient a/A Ratio Hemoglobin Carboxyhemoglobin (0.0-6.9) % THgb Methemoglobin (1.4-1.5) % Potassium 3.9 (3.5-5.1) Temperature C POC O2 Flow Rate % Sodium 138 (136-145) mEq/L Chloride 103 (98-107) mEq/L Carbon Dioxide 26.5 (21-32) mEq/L Anion Gap 12.3 (5-15) MEQ/L BUN 18 (9-20) mg/dL Creatinine 1.39 H (0.55-1.30) mg/dl Estimated GFR 53 ML/MIN Glucose 119 H (70-110) MG/DL Lactic Acid (0.4-2.0) Calcium 8.7 (8.5-10.1) mg/dL Magnesium (1.8-2.4) mg/dL Total Bilirubin 0.50 (0.2-1.0) mg/dL AST 11 L (15-37) U/L ALT 9 L (12-78) U/L Alkaline Phosphatase 95 (46-116) U/L Troponin I (0.000-0.056) ng/ml NT-Pro-B Natriuret Pep 9355 H (0-125) pg/ml Serum Total Protein 6.9 (6.4-8.2) gm/dL Albumin 2.6 L (3.4-5.0) g/dL Ur Collection Type Urine Color Urine Appearance Urine pH Ur Specific [place] Urine Protein Urine Ketones Urine Blood Urine Nitrite Urine Bilirubin Urine Urobilinogen Ur Leukocyte Esterase Urine Glucose Specimen Received 10/24/16 Range/Units 14:30 WBC (4.0-10.5) K/mm3 RBC (4.1-5.6) M/mm3 Hgb (12.5-18.0) gm/dl Hct (42-50) % MCV (78-100) fl MCH (26-32) pg MCHC (32-36) g/dl RDW (11.5-14.0) % Plt Count (150-450) K/mm3 MPV (6-9.5) fl Segmented Neutrophils (36.-66.) % Band Neutrophils (0.0-2.0) % Lymphocytes (Manual) (24-44) % Monocytes (Manual) (0.0-12.0) % Differential Comment Toxic Granulation Platelet Estimate (NORMAL) INR (0.8-3.0) D-Dimer (0.00-500.00) ng/mL Puncture Site RIGHT RADIAL pCO2 40 (35-45) mmHg pO2 49 L* (75-100) mmHg Base Excess 2.8 H (-2.0-2.0) O2 Saturation 83.3 L (94-100) g/dF ABG pH 7.44 (7.35-7.45) ABG HCO3 27.2 (22-28) ABG O2 Sat (Measured) 88.3 L (95-100) % Delio Test YES A-a Gradient 51 a/A Ratio 0.49 Hemoglobin 11.6 Carboxyhemoglobin 4.5 (0.0-6.9) % THgb Methemoglobin 1.1 L (1.4-1.5) % Potassium 3.8 (3.5-5.1) Temperature 37.0 C POC O2 Flow Rate 21 % Sodium (136-145) mEq/L Chloride (98-107) mEq/L Carbon Dioxide (21-32) mEq/L Anion Gap (5-15) MEQ/L BUN (9-20) mg/dL Creatinine (0.55-1.30) mg/dl Estimated GFR ML/MIN Glucose (70-110) MG/DL Lactic Acid 1.9 (0.4-2.0) Calcium (8.5-10.1) mg/dL Magnesium (1.8-2.4) mg/dL Total Bilirubin (0.2-1.0) mg/dL AST (15-37) U/L ALT (12-78) U/L Alkaline Phosphatase (46-116) U/L Troponin I (0.000-0.056) ng/ml NT-Pro-B Natriuret Pep (0-125) pg/ml Serum Total Protein (6.4-8.2) gm/dL Albumin (3.4-5.0) g/dL Ur Collection Type Urine Color Urine Appearance Urine pH Ur Specific [place] Urine Protein Urine Ketones Urine Blood Urine Nitrite Urine Bilirubin Urine Urobilinogen Ur Leukocyte Esterase Urine Glucose Specimen Received - Progress Progress Note: 10/24/16 15:38 PATIENT ADMINISTERED DUONEB AEROSOL TX. AFTER 2 SETS OF BLOOD CULTURES PATIENT GIVEN ANTIBIOTIC LEVAQUIN 500MG IVPB, MAGNESIUM 1GM IVPB, IV NORMAL SALINE TO 10ML/HR Blood Culture(s) Obtained: Yes Antibiotics given: Yes Discussed with : Other (DISCUSSED WITH ONCOLOGIST DR CAO AT 1600 ACCEPTS TRANSFER TO [facility] ICU VIA [facility]) - Departure Time of Disposition: 16:55 Departure Disposition: Transfer Clinical Impression: ACUTE DYSPNEA, PNEUMONIA, CONGESTIVE HEART FAILURE Condition: Stable Critical Care Time: No Referrals: MADELEINE NICHOLSON MD [Primary Care Provider] -
[2016-10-24] MEDS ORDERED: Sodium Chloride 0.9% 1000 ML 1,000 ML ONE (14:57)
--- NOTE | 2016-10-24 14:59 | XRAY ---
Indication: Short of breath. Dyspnea. Comparison: June 02, 2016 Portable chest demonstrates new left base infiltrate/atelectasis with stable right base infiltrate/atelectasis. Stable COPD/CIPD, pacemaker, and Port-A-Cath. Heart is not enlarged.
[2016-10-24 15:03] LABS: INR 1.32 (0.8-3.0)
[2016-10-24 15:06] LABS: Mean Platelet Volume 9.7 fl (6-9.5); Platelet Count 138 K/mm3 (150-450); Red Blood Count 3.79 M/mm3 (4.1-5.6); Red Cell Distribution Width 15.4 % (11.5-14.0)
[2016-10-24 15:08] LABS: Mean Corpuscular Hemoglobin 30.8 pg (26-32)
[2016-10-24] MEDS ORDERED: Levofloxacin 500MG/100ML D5W 500 MG/100 ML BAG IV STA (15:11)
[2016-10-24] MEDS ORDERED: Levofloxacin 500MG/100ML D5W 500 MG/100 ML BAG IV ONE (15:15)
[2016-10-24 15:21] LABS: ALBUMIN 2.6 g/dL (3.4-5.0); ANION GAP 12.3 MEQ/L (5-15); BILIRUBIN,TOTAL 0.5 mg/dL (0.2-1.0); Carbon Dioxide 26.5 mEq/L (21-32); Potassium 3.9 mEq/L (3.5-5.1); Total Protein 6.9 gm/dL (6.4-8.2)
[2016-10-24] MEDS ORDERED: Magnesium 1 Gm / 100 Ml D5W*** 100 ML IV ONE ×2 (15:26→15:36)
[2016-10-24] MEDS ORDERED: BABY ASPIRIN 81 MG CHEW PO ONE (15:34)
[2016-10-24] MEDS ORDERED: Lasix 20 MG/2 ML IV STA (15:43)
[2016-10-24] MEDS ORDERED: Lasix 40 MG/4 ML ONE (15:45)
[2016-10-24 15:51] LABS: BAND 21 % (0.0-2.0); Total Cells Counted 100
[2016-10-24 15:52] LABS: Platelet Estimate DECREASED (NORMAL); Toxic Granulation 1+
[2016-10-24 16:44] VITALS: BP 107/59; PULSE 68
[2016-10-24 17:03] LABS: Collection Type CCMS; Glucose NEGATIVE (NEGATIVE); Leukocyte Esterase NEGATIVE (NEGATIVE)
[2016-10-24 17:04] LABS: Blood 250 Ery/ul (0-5); COMPLETE URINE MICROSCOPIC? YES; WBC 0-2 /HPF (0-5)
[2016-10-24 17:06] VITALS: O2SAT 75
== END 2016-10-24 16:45 | disposition short-term general hospital (02) ==
LOC: ED 14:21
DX: R06.00 Dyspnea, unspecified (principal); J18.9 Pneumonia, unspecified organism; I50.9 Heart failure, unspecified; I10 Essential (primary) hypertension; J44.9 Chronic obstructive pulmonary disease, unspecified; Z85.01 Personal history of malignant neoplasm of esophagus; R07.9 Chest pain, unspecified; M54.9 Dorsalgia, unspecified; Z79.899 Other long term (current) drug therapy
CPT/HCPCS: 36000; 36415; 36600; 51702; 71010; 80053; 81000; 82375; 82803; 83605; 83735; 83880; 84484; 85025; 85379; 85610; 87040; 87077; 87186; 93005; 93041; 94640; 96360; 96361; 96365; 96374; 96375; 99285; J1940; J1956; J3475; A9270-GY